=== PATIENT | male | born 2000 | race Asian ===

== ENCOUNTER 2019-04-22 06:05 | Day surgery (SDC) | payer BC, OTHER ==
[2019-04-20 14:56] VITALS: BMI 24.3
[2019-04-22] MEDS ORDERED: SUCCINYLCHOLINE CHLORIDE 200 MG/10 ML VIAL ONE (06:59)
[2019-04-22] MEDS ORDERED: MIDAZOLAM HCL 2 MG/2 ML SINGLE DOSE VIAL ONE ×2 (06:59→08:00)
[2019-04-22] MEDS ORDERED: PROPOFOL 20 ML ONE ×2 (06:59→08:16)
[2019-04-22] MEDS ORDERED: LIDOCAINE 1%/EPI 1:100000 (20 ML MULTI DOSE VIAL) ONE (07:19)
[2019-04-22] MEDS ORDERED: BUPIVACAINE HCL/EPINEPHRINE/PF 30 ML VIAL IJ ONE (07:22)
[2019-04-22] MEDS ORDERED: BUPIVACAINE 0.25% /EPI 1:200,000 10 ML VIAL INF ONE (07:55)
[2019-04-22] MEDS ORDERED: ceFAZolin SODIUM 1 GM VIAL ONE (08:01)
--- NOTE | 2019-04-22 09:34 | OP ---
Operative Note - Note: Operative Date: 04/22/19 Pre-Operative Diagnosis: left knee LMT, LFC cartilage defect Operation: LKA< PLM, Microfracture, cartilage biopsy Surgeon: Jose Cleveland Operative Report Dictated: Yes
--- NOTE | 2019-04-22 09:35 | DS ---
Physical Examination Vital Signs: Vital Signs Temperature 97.6 F 04/22/19 09:05 Pulse Rate 64 04/22/19 09:05 Respiratory Rate 20 04/22/19 09:05 Blood Pressure 101/59 L 04/22/19 09:05 O2 Sat by Pulse Oximetry (%) 96 04/22/19 09:05 Discharge Summary Reason For Visit: LATERAL MENISCAL TEAR, CARTILAGE DEFECT LEFT KNEE Condition: Good - Instructions Diet, Activity, Other Instructions: Post Operative Instructions: Knee Arthroscopy Dr Jose Cleveland 1. Pain following an arthroscopy is variable. Some patients will have more pain than others. You have been provided with a prescription for medication that contains a narcotic. You are not allowed to drive while on this medication. You should NOT take Tylenol (Acetaminophen) when taking the pain medication ( it will result in an overdose). Feel free to take medications such as Ibuprofen or Naprosyn in addition to the pain medicine if you do not have any problems with the NSAID class of medications. 2. You are allowed to remove the bandages and shower in 24 hours unless directed otherwise. You are not allowed to bathe or go swimming until the sutures are removed. Put band-aids on the sutures after your shower and do not put any creams or lotions over the incisions. 3. You are allowed to put some of your weight on the leg and bend your knee 4. Apply ice to the knee for 15 min every hour or so. You may continue this for as many days as you like. 5. Please call the office to schedule a visit to have your sutures removed. 6. If for any reason you believe you may have an infection or are concerned, please feel free to call me. I can be reached through our office number 24 hours a day. 7. Please call our office with any questions; we will review the surgical findings during your post operative visit. Disposition: HOME - Home Medications Comprehensive Discharge Medication List: Ambulatory Orders Fluoxetine HCl [Prozac] 20 mg PO DAILY 04/20/19
[2019-04-22] MEDS ORDERED: ONDANSETRON 4 MG/2 ML VIAL IVPUSH PRN (09:52)
[2019-04-22] MEDS ORDERED: oxyCODONE HCL 5 MG TABLET PO PRN ×2 (09:52)
[2019-04-22] MEDS ORDERED: PROMETHAZINE HCL 25 MG/1 ML VIAL IVPUSH PRN (09:52)
[2019-04-22] MEDS ORDERED: oxyCODONE HCL 5 MG TABLET PO ONE (10:00)
[2019-04-22 10:20] VITALS: BP 135/82; PULSE 80
[2019-04-22 10:48] VITALS: TEMP 97.8
--- NOTE | 2019-04-27 16:53 | PATH ---
Surgical Pathology Report Patient Name: CONNOR MCLAUGHLIN Med. Rec. #: [id number] /Age/Gender: 2000 (Age: 18) / M Account: [id number] Location: [facility] AMBULATORY Taken: 04/22/2019 Received: 04/22/2019 Reported: 04/27/2019 Physicians: Jose Cleveland M.D. Specimen(s) Received LEFT KNEE SHAVINGS Clinical History Left knee lateral meniscal tear and cartilage defect Final Diagnosis KNEE SHAVINGS, LEFT, ARTHROSCOPY: FRAGMENTS OF CARTILAGE, BONE, DENSE FIBROCONNECTIVE TISSUE, ADIPOSE TISSUE, AND SYNOVIUM. Electronically Signed Delma Chadwick M.D. Gross Description Received in formalin, labeled "left knee shavings," is a 4.5 x 4.0 x 0.3 cm. aggregate of menjivar-yellow soft tissue fragments. A installation service representative portion is submitted in one cassette. /04/26/2019 saudi04/26/2019
== END 2019-04-22 10:45 | disposition home or self-care (01) ==
LOC: FASU 06:05
PROVIDERS: ATTEND Orthopaedic Surgery
PROC: 0SBD4ZZ Excision of Left Knee Joint, Percutaneous Endoscopic Approach (ICD-10-PCS; 2019-04-22)
PROC: 0SBD4ZZ Excision of Left Knee Joint, Percutaneous Endoscopic Approach (ICD-10-PCS; principal; 2019-04-22 08:17)
DX: S83.282A Other tear of lateral meniscus, current injury, left knee, initial encounter (principal); M24.10 Other articular cartilage disorders, unspecified site; X58.XXXA Exposure to other specified factors, initial encounter; Y93.9 Activity, unspecified; Y92.9 Unspecified place or not applicable
CPT/HCPCS: 88304-TC